=== PATIENT | male | born 1995 ===

== ENCOUNTER 2017-03-12 16:11 | Observation (INO) | payer OTHER ==
[2017-03-12] VITALS (10 sets, daily range): BP systolic 107–132; BP diastolic 51–88; PULSE 56–83; TEMP 98.1–98.8
[~2017-03-12] VITALS: Wt 73.3 kg
[2017-03-12] MEDS ORDERED: MOTRIN 600600 MG/TAB PO (17:10)
[2017-03-12] MEDS ORDERED: PERCOCET 325 MG1 TA2 PO (17:11)
[2017-03-12] MEDS ORDERED: COLACE 100100 MG/CAP PO (17:11)
[2017-03-12] MEDS ORDERED: AMOXICILLIN 8751 TAB PO (18:59)
[2017-03-13 04:00] VITALS: BP 106/55; PULSE 61; TEMP 98.2
[2017-03-13 10:04] VITALS: BP 102/53; PULSE 68; TEMP 98.5
== END 2017-03-13 14:58 | disposition home or self-care (01) ==
LOC: SURG 16:11
DX: K35.80 Unspecified acute appendicitis (principal)
CPT/HCPCS: G0378; J2405; J2704; J3010; J7120